=== PATIENT | male | born 1985 | race Caucasian/White ===

== ENCOUNTER 2019-07-06 19:02 | Inpatient (IN) | payer MEDICAID ==
[~2019-07-06] VITALS: Ht 177.8 cm; Wt 112.7 kg
--- NOTE | ~2019-07-06 | HEMODYNAMI ---
PATIENT:KAREN SALAZAR MEDICAL RECORD: [id number] : 81 LOCATION:[facility] D.2118 ADMISSION DATE: 07/07/19 Generatedon:07/08/20198:59 Patient name: KAREN SALAZAR Patient #: [id number] SSN: [id number] : 1985 Date of study: 07/08/2019 Page: Of Hemodynamic Procedure Report Patient Data Patient Demographics Procedure consent was obtained First Name: KAREN Gender: Male Last Name: MARTIN : 1985 Patient #: [id number] Age: 34 year(s) Race: Unknown SSN: [id number] Additional ID: [id number] Contact details [address]: [address] [place] [address] State: [place] City: [place] Zip code: [address] Past Medical History Allergies Allergen Reaction Date Comments Reported Other allergy 07/08/2019 PCN, AMOXICILLIN, BENADRYL Admission Admission Data Admission Date: 07/07/2019 Admission Time: 13:34 Room #: D.2118 Height (in.): 70 BSA: 2.29 (m2) Height (cm.): 177.8 BMI: 35.74 (kg/m2) Weight (lbs.): 249.12 Weight (kg.): 113 Lab Results Lab Result Date: 07/08/2019 Lab Result Time: 0:00 Biochemistry Name Units Result Min Max BUN mg/dl 15 --(--*-)-- 7 18 eGFR ml/min 90 --(*---)-- 90 120 NONAFRICAN CBC Name Units Result Min Max Hematocrit % 44.5 --(*---)-- 42 54 Hemoglobin g/dl 14.9 --(-*--)-- 13.5 17.5 Procedure Procedure Types Cath Procedure Diagnostic Procedure LHC LHC w/Coronaries Procedure Description Procedure Date Procedure Date: 07/08/2019 Procedure Start Time: 8:46 Procedure End Time: 8:57 Procedure Staff Name Function Harrison Gerard MD Performing Physician Jose Caldwell RN Nurse Pramod Cleveland RN Welder Boilermaker Shania Lopez RT Monitor Heike Coughlin RT Scrub Procedure Data Cath Procedure Fluoroscopy Diagnostic fluoroscopy Total fluoroscopy Time: 1.9 time: 1.9 min min Diagnostic fluoroscopy Total fluoroscopy dose: 386 dose: 386 mGy mGy Contrast Material Contrast Material Type Amount (ml) Isovue 300 44 Entry Location Entry Primary Successful Side Size Upsize Upsize Entry Closure Rollins ccessful Closure Location (Fr) 1 (Fr) 2 (Fr) Remarks Device Remarks Radial Right 6 Fr Mechanical artery Short Compression Estimated blood loss: 5 ml Diagnostic catheters Device Type Used For End Catheter Placement DIAGNOSTIC [place] 110cm 5 Procedure Fr catheter ([id number]) Procedure Complications No complications Procedure Medications Medication Administration Route Dosage 0.9% NaCl I.V. 100 ml/hr Oxygen etCO2 Nasal cannula 2 l/min Heparin Flush Bag added to field 2 bags (1000units/500ml NS) Lidocaine 2% added to field 20 Radial Cocktail added to field 1 syringe (Verapamil 2mg/Nitro 400mcg/Heparin 1500units) Versed I.V. 2 mg Fentanyl I.V. 100 mcg Versed I.V. 2 mg Fentanyl I.V. 100 mcg Radial Cocktail I.A. 1 syringe (Verapamil 2mg/Nitro 400mcg/Heparin 1500units) Versed I.V. 1 mg Hemodynamics Rest BSA: 2.29 (m2) HGB: 14.9 (g/dl) O2 Consumption: Estimated: 302.72 (ml/min) O2 Co nsumption indexed: Estimated:132.19 (ml/min/m) Heart Rate: 93 (bpm) Snapshots Pre Cath Intra NCS Post Cath Vital Signs Time Heart Resp SPO2 etCO2 NIBP (mmHg) Rhythm Pain Sedation Rate (ipm) (%) (mmHg) Status Level (bpm) 8:03:40 109 29 94 33 141/85(108) NSR 0 (11) 10(A) , No pain 8:08:00 104 15 92 36.8 126/90(106) NSR 0 (11) 10(A) , No pain 8:12:14 106 13 93 27 133/90(108) NSR 0 (11) 10(A) , No pain 8:16:30 107 16 92 27.8 133/89(105) NSR 0 (11) 10(A) , No pain 8:20:44 101 16 92 32.3 129/85(106) NSR 0 (11) 10(A) , No pain 8:24:58 100 14 92 30.1 129/85(94) NSR 0 (11) 10(A) , No pain 8:29:10 99 13 92 36.8 128/76(100) NSR 0 (11) 10(A) , No pain 8:33:20 101 16 93 35.3 130/86(98) NSR 0 (11) 10(A) , No pain 8:37:32 94 14 93 36.1 129/81(117) NSR 0 (11) 10(A) , No pain 8:41:48 92 19 93 18 124/78(94) NSR 0 (11) 10(A) , No pain 8:46:08 101 13 94 36.8 115/67(102) NSR 0 (11) 10(A) , No pain 8:50:24 103 11 92 33.8 123/71(98) NSR 0 (11) 10(A) , No pain 8:54:34 117 12 91 37.6 115/74(96) NSR 0 (11) 10(A) , No pain Medications Time Medication Route Dose Verified Delivered Reason Notes Effectiveness by by 8:01:35 0.9% NaCl I.V. 100 Jose Jose Per ml/hr Paulette Caldwell physician RN RN 8:01:44 Oxygen etCO2 2 l/min Jose Jose for low 02 Nasal Lorigan Lorigan sats cannula RN RN 8:01:54 Heparin Flush added 2 bags Jose Jose used for Bag to Lorigan Lorigan procedure (1000units/500ml field KULKARNI RN NS) 8:02:05 Lidocaine 2% added 20ml Jose Jose for local to vial Lorigan Lorigan anesthetic field KULKARNI RN 8:02:18 Radial Cocktail added 1 Jose Jose used for (Verapamil to syringe Lorigan Lorigan procedure 2mg/Nitro field KULKARNI RN 400mcg/Heparin 1500units) 8:44:31 Versed I.V. 2 mg Jose Jose for sedation Paulette Caldwell RN RN 8:44:39 Fentanyl I.V. 100 mcg Jose Jose for sedation Paulette Caldwell RN RN 8:48:30 Versed I.V. 2 mg Jose Jose for sedation Paulette Caldwell RN RN 8:48:36 Fentanyl I.V. 100 mcg Jose Jose for sedation Paulette Caldwell RN RN 8:49:03 Radial Cocktail I.A. 1 Jose Harrison for (Verapamil syringe Paulette Gerard MD vasodilation 2mg/Nitro RN 400mcg/Heparin 1500units) 8:50:10 Versed I.V. 1 mg Jose Jose for sedation Paulette Caldwell RN senior sql server developer Log Time Note 7:34:04 Informed consent obtained and on chart 7:37:14 Procedure Status Urgent Heart Cath (IP). 7:37:17 Pramod Cleveland RN sent for patient. Start room use. 7:37:18 Time tracking: Regular hours (M-F 7:00 - 5:00) 7:37:23 Plan of Care:Hemodynamics will remain stable., Cardiac rhythm will remain stable., Comfort level will be maintained., Respiratory function will remain adequate., Patient/ family verbilizes understanding of procedure., Procedure tolerated without complication., Recovers from procedure without complications.. 7:37:28 H&P Date Dictated: 07/08/2019 New H&P dictated by physician.. 7:38:01 Patient allergic to Other allergyPCN, AMOXICILLIN, BENADRYL 7:39:04 Lab Result : BUN 15 mg/dl 7:39:04 Lab Result : eGFR NONAFRICAN 90 ml/min 7:39:04 Lab Result : Hemoglobin 14.9 g/dl 7:39:04 Lab Result : Hematocrit 44.5 % 7:44:34 Risk of Mortality: .1 7:44:36 Risk of blood transfusion: .1 7:44:38 Risk of SONIA: .1 7:52:53 Patient received from Med II to CCL 1 Alert and oriented. Tansferred to table in Supine position. 7:52:54 Warm blankets applied, and rita hugger turned on for patient comfort. 7:52:55 Correct patient and procedure confirmed by team. 7:52:55 ECG and BP/O2 sat monitors applied to patient. 7:52:57 Pre-procedure instructions explained to patient. 7:52:58 Pre-op teaching completed and patient verbalized understanding. 7:53:06 Family in patients room. 7:53:08 Patient NPO since Midnight. 7:53:10 Is patient on blood thinner?Yes 7:53:18 PRELOADED ON PLAVIX 7:53:19 Patient diabetic? Yes. 7:53:21 If diabetic: On Metformin? Yes 7:53:24 If on Metformin: Last Dose? 07/06/2019 7:53:56 Is the patient allergic to Iodine/contrast media? No. 7:54:04 Previous problem with sedation/anesthesia? No ? 7:54:05 Snore? Yes 7:54:06 Sleep apnea? No 7:54:07 Deviated septum? No 7:54:07 Opens mouth fully? Yes 7:54:08 Sticks out tongue? Yes 7:54:10 Airway obstruction? No ? 7:54:12 Dentures? No . 7:54:54 Modified Ottoniel's test Ulnar < 7 seconds 7:54:57 Patient pain scale 0/10 ?. 7:55:18 IV patent on arrival in left wrist with 0.9% NaCl at [facility]. 7:55:21 Lab results completed and on chart. 7:55:28 Right Radial & Right Groin area was prepped with chlora-prep and draped in sterile fashion 7:55:29 Alarms reviewed by R. N. 7:55:30 Sharps counted by scrub and verified by R.N. 8:01:35 0.9% NaCl 100 ml/hr I.V. was administered by Jose Caldwell RN; Per physician; Verbal order read back and verified. 8:01:44 Oxygen 2 l/min etCO2 Nasal cannula was administered by Jose Caldwell RN; for low 02 sats; Verbal order read back and verified. 8:01:54 Heparin Flush Bag (1000units/500ml NS) 2 bags added to field was administered by Jose Caldwell RN; used for procedure; Verbal order read back and verified. 8:02:05 Lidocaine 2% 20ml vial added to field was administered by Jose Caldwell RN; for local anesthetic; Verbal order read back and verified. 8:02:18 Radial Cocktail (Verapamil 2mg/Nitro 400mcg/Heparin 1500units) 1 syringe added to field was administered by Jose Caldwell RN; used for procedure; Verbal order read back and verified. 8:02:25 Vital chart was started 8:04:57 Baseline sample Acquired. 8:05:00 Rhythm: sinus tachycardia 8:05:02 Full Disclosure recording started 8:28:10 Use device set Radial Dx or PCI 8:28:11 ACIST Syringe (16378) opened to sterile field. 8:28:12 Bag Decanter (2001S) opened to sterile field. 8:28:13 ACIST Hand Control (97498) opened to sterile field. 8:28:13 ACIST Manifold (04518) opened to sterile field. 8:28:13 Tegaderm 4 x 4 (1626W) opened to sterile field. 8:28:15 Medline Cath Pack ([id number]) opened to sterile field. 8:28:16 MBrace Wrist Support ([id number]) opened to sterile field. 8:28:19 EMERALD Guide Wire (253-570) opened to sterile field. 8:28:20 SHEATH 6FR RAIN (2545115) opened to sterile field. 8:35:37 Stress Test: no; N/A NSTEMI 8:40:37 Patient Weight : 249.12 lbs 8:40:41 Patient Height : 70 inches 8:41:51 --------ALL STOP TIME OUT------ 8:41:51 Final Timeout: patient, procedure, and site verified with staff and physician. All members of the team are in agreement. 8:41:53 Right Radial & Right Groin site verified by team. 8:41:57 Fire Safety Assessment: A--An alcohol-based skin anteseptic being used preoperatively., C--Open oxygen or nitrous oxide is being used., D--An ESU, laser, or fiber-optic light is being used. 8:42:00 Physical assessment completed. ASA score P 2 - A patient with mild systemic disease as per Harrison Gerard MD. 8:42:02 1) 90+ Normal kidney functon but urine findings or structural abnormalities or genetic trait point to kidney disease. 8:42:05 Maximum allowable contrast dose (3.7 X eGFR X 0.75)250 ml. 8:42:08 Sedation plan: IV Moderate Sedation Medication:Versed, Fentanyl 8:44:31 Versed 2 mg I.V. was administered by Jose Caldwell RN; for sedation; Verbal order read back and verified. 8:44:39 Fentanyl 100 mcg I.V. was administered by Jose Caldwell RN; for sedation; Verbal order read back and verified. 8:46:32 Procedure started. 8:46:55 Local anesthetic to right radial artery with Lidocaine 2% by Harrison Gerard MD.INITIAL ACCESS ONLY 8:47:29 A 6 Fr Short sheath was inserted into the Right Radial artery 8:48:30 Versed 2 mg I.V. was administered by Jose Caldwell RN; for sedation; Verbal order read back and verified. 8:48:36 Fentanyl 100 mcg I.V. was administered by Jose Caldwell RN; for sedation; Verbal order read back and verified. 8:48:50 A DIAGNOSTIC [place] 110cm 5 Fr catheter (019193) was advanced over the wire and used for Procedure. 8:49:03 Radial Cocktail (Verapamil 2mg/Nitro 400mcg/Heparin 1500units) 1 syringe I.A. was administered by Harrison Gerard MD; for vasodilation; Verbal order read back and verified. 8:49:42 LV gram done using MATA 8:49:45 Injector settings: Ml/sec: 5, Volume: 15, 8:50:10 Versed 1 mg I.V. was administered by Jose Caldwell RN; for sedation; Verbal order read back and verified. 8:50:19 EF : 60 % 8:51:18 RCA angiography performed. 8:51:19 Catheter exchanged over wire. 8:51:27 GUIDE 6FR EBU 3.0 catheter ([id number]) opened to sterile field. 8:51:59 6 Fr EBU 3 guide catheter was inserted over the wire 8:52:50 LCA angiography performed. 8:52:56 Guide catheter removed. 8:53:04 Procedure ended.(Physican Out) 8:53:36 ZEPHYR REGULAR TR BAND (646541) opened to sterile field. 8:53:45 Sheath removed intact; hemostasis achieved with Mechanical Compression to the Right Radial artery. 8:53:50 Fluoroscopy time 01.90 minutes. 8:53:55 Fluoroscopy dose: 386 mGy 8:53:55 Flurop Dose total: 386 8:54:01 Dose Area Product 28002 mGy/cm. 8:54:07 Contrast amount:Isovue 300 44ml. 8:54:10 Maximum allowable dose exceeded? No. 8:54:11 Sharps counted by scrub and verified by R.N. 8:54:15 [place] band inflated with 10cc of air. 8:54:17 Insertion/operative site no bleeding no hematoma. 8:54:19 Post-procedure physical assessment completed. ASA score P 2 - A patient with mild systemic disease as per Harrison Gerard MD. 8:54:26 Post procedure rhythm: unchanged. 8:56:41 Estimated blood loss: 5 ml 8:56:43 Post procedure instruction explained to patient.Patient verbalizes understanding. 8:56:43 Patient needs reinforcement of post procedure teaching. 8:57:04 Procedure and supply charges have been captured, reviewed, submitted and are correct. 8:57:10 Procedure Complication : No complications 8:57:12 Vital chart was stopped 8:57:13 [facility] Findings: mild to moderate CAD (<70%) 8:57:18 Operative report dictated upon procedure completion. 8:57:18 See physician's report for complete and final results. 8:57:20 Report given to PCU. 8:57:22 Patient transfered to PCU with Bed. 8:57:23 Procedure ended. 8:57:23 Full Disclosure recording stopped 8:57:29 End room use (Document Last) Device Usage Item Name Manufacture Quantity Catalog Hospital Part Current Minima l Lot# / Number Charge Number Stock Stock Serial# Code ACIST Acist 1 08006 254036 201520 [id number] 20 Syringe Medical (61140) Systems Inc Bag Microtek 1 2001S [id number] 89011 133877 5 Decanter Medical Inc. () ACIST Hand Acist 1 13644 101425 694686 451754 5 Control Medical (23896) Systems Inc ACIST Acist 1 16819 312336 067149 384340 5 Manifold Medical (20994) Systems Inc Tegaderm 4 3M 1 1626W 666218 741270 590708 5 x 4 (1626W) Medline Medline 1 [id number] 364375 80596 862700 5 Cath Pack ([id number]) MBrace Advanced 1 140-0250-00 095385 32270 997493 5 Wrist Vascular Support Dynamics ([id number]) [facility] Cardinal 1 827-667 235614 872515 731120 5 Guide Wire [facility] (404-299) SHEATH 6FR Cardinal 1 [id number] 146030 8456634 167664 5 [facility] (5594899) DIAGNOSTIC Terumo 1 92-4965 050002 429044 401267 5 [place] 110cm 5 Fr catheter (031684) GUIDE 6FR Medtronic 1 [id number] 675861 61121 512821 0 EBU 3.0 catheter ([id number]) ZEPHYR Cardinal 1 102704 619947 1265188 044333 5 REGULAR TR Health BAND (654546) Signature Audit [place] Stage Time Signature Unsigned Intra-Procedure 07/08/2019 Shania Lopez 8:59:12 AM RT(R) Intra-Procedure 07/08/2019 Jose 8:59:31 AM Paulette KULKARNI Intra-Procedure 07/08/2019 Harrison Gerard 8:59:48 AM [place] [id number] [facility] [place] [address]
--- NOTE | ~2019-07-06 | OP ---
PATIENT NAME: KAREN SALAZAR MEDICAL RECORD: [id number] :81 LOCATION:D.M2 D.2118 ADMISSION DATE:07/07/19 SURGEON: FLORENTIN MONTAÑO MD DATE OF OPERATION: 07/08/2019 PROCEDURES: 1. Left heart catheterization. 2. Selective coronary angiography. 3. Left ventriculogram. INDICATION: Non-Q-wave myocardial infarction. PROCEDURE IN DETAIL: After informed consent was obtained and after a detailed explanation of risks, benefits as well as alternative therapies, the patient elected to proceed with angiogram and heart catheterization. The right radial area was prepped and draped in normal sterile fashion. Right radial artery was cannulated via modified Seldinger technique with placement of 5-Swazi sheath. All catheters exchanged through this sheath. FINDINGS: Left ventriculography was performed in standard 30-degree MATA view, reveals good cardiac wall motion throughout all segments. Overall ejection fraction estimated 60%. SELECTIVE CORONARY ANGIOGRAPHY: Left main, left anterior descending, left circumflex, and right coronary artery are all smooth-walled vessels with no angiographic evidence of coronary artery disease. OVERALL IMPRESSION: 1. No angiographic evidence of coronary artery disease. 2. Normal left heart pressures. 3. Normal left ventricular systolic function. Chest pain is not due to a hemodynamically significant ischemic heart disease. Continue medical management of cardiac risk factors. TRANSINT:[id number] Voice Confirmation ID: [id number] DOCUMENT ID: [id number] FLORENTIN MONTAÑO MD CC: [id number] DICTATION DATE: 07/08/19 0855 HORN PLAYER: 07/08/19 1134 ADM IN [place] [address] [place] [address]
--- NOTE | ~2019-07-06 | EC ---
PATIENT:KAREN SALAZAR DATE OF SERVICE: 07/07/19 SEX: M MEDICAL RECORD: [id number] DATE OF : [birth year] LOCATION:D.M2 D.211 AGE OF PATIENT: 34 ADMISSION DATE: 07/07/19 REFERRING PHYSICIAN: INTERPRETING PHYSICIAN: FLORENTIN GERARD MD ECHOCARDIOGRAM REPORT ECHO CHARGES 4 ECHO COMPLETE Date: 07/07/19 CLINICAL DIAGNOSIS: IN ECHOCARDIOGRAPHIC MEASUREMENTS (adult normal given) AC root (d.<3.7cm) 3.2 cm LV Septum d (<1.2 cm> 1.3 cm Valve Excursion 1.2 cm LV Septum (systole) 1.4 cm Left Atria (s.<4.0cm> 4.5 cm LVPW d(<1.2cm) 1.3 cm RV (d.<2.3cm) 3.7 cm LVPW (sytole) 1.6 cm LV diastole(<5.6CM) 7.4 cm MV E-F(>70mm/sec) cm LV systole 6.1 cm LVOT Diameter 1.9 cm MV exc.(>10mm) cm Est.ejection fraction (50-75%) % DOPPLER: LVIT cm/sec A 73 cm/sec E 63 cm/sec LA cm/sec RVSP 15.5 mmHg LVOT 111 cm/sec AOP1/2T m/s Asc. Ao 121 cm/sec RVOT 74 cm/sec RA cm/sec PA 93 cm/sec AV Gradient Peak 5.8 mmHg AV Mean 3.4 mmHg AV Area 2.6 cm MV Gradient Peak 4.7 mmHg MV Mean 2.3 mmHg MV Area cm COMMENTS: Wind Turbine Mechanic: Andrew CHILDERS Lead Technical Writer: Lory Gerard TAPE# PACS Pericardial Effusion N DATE OF SERVICE: 07/08/2019 FINDINGS: 1. Left ventricular chamber size is mildly dilated. Left ventricular systolic function is preserved at 50 to 55%. 2. Left atrium is enlarged at 4.5 cm. Right atrium and right ventricle chamber sizes are as well mildly dilated. 3. Valvular structure has normal structure and motion. 4. Doppler interrogation reveals no significant valvular insufficiency or stenosis and pulmonary systolic pressure is normal estimated 15 mmHg. ECHOCARDIOGRAM REPORT [id number] KAREN SALAZAR 5. No evidence of pericardial effusion or left ventricular thrombus. TRANSINT:[id number] Voice Confirmation ID: [id number] DOCUMENT ID: [id number] FLORENTIN GERARD MD CC: [id number] DICTATION DATE: 07/08/19 1259 FULFILLMENT COORDINATOR: 07/08/191958 DIS IN 07/08/19 [place] [id number] [place] [id number]
--- NOTE | ~2019-07-06 | CN ---
PATIENT NAME:KAREN JUÁREZ MEDICAL RECORD: [id number] : 81 LOCATION:[facility].2118 ADMIT DATE: 07/06/19 ACCOUNT: [id number] CONSULTING PHYSICIAN: FLORENTIN MONTAÑO MD REFERRING PHYSICIAN: DORIS LINDSAY MD DATE OF CONSULTATION: 07/07/2019 CARDIOLOGY CONSULTATION DIAGNOSES: 1. Non-Q-wave myocardial infarction. 2. Coronary artery disease 3. Noninsulin-dependent diabetes. 4. Hypertension. 5. Hyperlipidemia. 6. Family history of coronary artery disease. HISTORY OF PRESENT ILLNESS: Mr. Juárez presents with chest pain, diaphoresis. It came on acutely last night while eating dinner. He had profound shortness of breath, diaphoresis, began having chest pain. He was noted to be hyperglycemic with blood sugar in the 400 range. This is not unusual for him. He has diabetes that is known for a year. He is on Glucophage for the diabetes. He has been having episodes of chest pain. In fact, in November, he underwent cardiac catheterization in [place] due to ongoing chest pain. They told him that he had some degree of coronary artery disease, but not significant needing stenting or intervention at that time. He has continued to have episodes of chest discomfort. He does think the episodes of chest discomfort have overall worsened and become more frequent over the past few months. Since admission, he as well has had an episode of chest discomfort this morning. He does have a positive troponin. His EKG is with no acute ST-T abnormalities. PHYSICAL EXAMINATION: CONSTITUTIONAL/GENERAL APPEARANCE: Well nourished, well developed, appears stated age. EYES: Lids and conjunctivae noninjected. No discharge. No pallor. ENT: Lips within normal limit. No cyanosis. No pallor. NECK: Carotid arteries, bilateral normal upstroke. No bruits. No thrills. No jugular venous pressure or distention. CERVICAL LYMPH NODES: Nontender. Nonenlarged. THYROID: Not enlarged. No nodules. CARDIOVASCULAR: Precordial exam, nondisplaced. No heaves or pericardial thrills. Rate and rhythm, regular. Heart sounds, normal S1, normal S2. No S3, no gallop, no rub. Systolic murmur, not heard. Diastolic murmur, not heard. RESPIRATORY: Respiratory effort, unlabored. Normal curvature. No thoracic deformity. No chest wall tenderness. Percussion, resonant. Auscultation, clear. No wheezes, no rales, no rhonchi. ABDOMEN: Soft, nondistended, nontender. No abdominal pain, no vomiting and normal appetite. MUSCULOSKELETAL: No joint tenderness, normal gait, normal tone. SKIN: Warm and dry. OVERALL IMPRESSION: Non-Q-wave myocardial infarction with a history of coronary artery disease, family history; diabetes; hypertension; hyperlipidemia. At this time, we will proceed with coronary angiography in the a.m. Further care depends upon findings of the angiography. CONSULT REPORT [id number] KAREN JUÁREZ TRANSINT:[id number] Voice Confirmation ID: [id number] DOCUMENT ID: [id number] FLORENTIN MONTAÑO MD CC: [id number] DICTATION DATE: 07/07/19 113 FLOW TRADER: 07/07/19 1306 ADM IN [facility] [address] [id number]
[2019-07-06] MEDS ORDERED: METFORMIN HCL500 M1 PO (19:17)
[2019-07-06] MEDS ORDERED: LISINOPRIL-HCT1 EAC7 PO (19:18)
[2019-07-06] MEDS ORDERED: CELEBREX 100 M100 MG PO (19:18)
[2019-07-06] MEDS ORDERED: GEMFIBROZIL600 MG PO (19:22)
[2019-07-06] MEDS ORDERED: LIPITOR40 MG PO (19:23)
[2019-07-06] MEDS ORDERED: ZANAFLEX4 MG PO (19:23)
[2019-07-06 19:38] LABS: APPEARANCE CLEAR (CLEAR); BILIRUBIN NEGATIVE (NEGATIVE); COLOR STRAW (YELLOW); GLUCOSE 500 mg/dL (NEGATIVE); KETONE NEGATIVE (NEGATIVE); NITRITE NEGATIVE (NEGATIVE); PROTEIN NEGATIVE (NEGATIVE); SPECIFIC GRAVITY 1.015 (1.005-1.020); UROBILINOGEN NORMAL (NORMAL)
--- NOTE | 2019-07-06 19:40 | NUR ---
FSBS 353
[2019-07-06 19:47] LABS: BASOPHILS 0.3 % (0-2); EOSINOPHILS 0.8 % (0-7); HEMATOCRIT 43.5 % (42.0-54.0); HEMOGLOBIN 15.2 g/dL (13.5-17.5); IMMATURE GRANULOCYTES 0.4 % (0-5); LYMPHOCYTES 21.8 % (15-50); MCH 31.1 pg (26.0-34.0); MCHC 34.9 g/dL (31.0-37.0); MEAN PLATELET VOLUME 12.7 fL (7.4-10.4); MONOCYTES 9.5 % (2-11); NEUTROPHILS 67.2 % (40-80); PLATELET COUNT 360 10x3/uL (130-400); RBC 4.89 10x6/uL (4.20-6.10); RDW 12.3 % (11.5-14.5); WBC 10.9 10x3/uL (4.8-10.8)
[2019-07-06 20:36] LABS: CALC OSMOLALITY 279 mosm/kg (275-300); CALCIUM 8.4 mg/dL (8.5-10.1); CARBON DIOXIDE 23.8 mmol/L (21.0-32.0); CHLORIDE - SERUM 99 mmol/L (98-107); CREATININE - SERUM 0.9 mg/dL (0.6-1.3); GLUCOSE 337 mg/dL (74-106); POTASSIUM - SERUM 4.1 mmol/L (3.5-5.1); SODIUM 133 mmol/L (136-145); UREA NITROGEN 14 mg/dL (7-18); eGFR NON AFRICAN AMERICAN > 90 mL/min (90-120)
[2019-07-06 20:56] LABS: ALBUMIN 3.2 g/dL (3.4-5.0); MAGNESIUM - SERUM 1.7 mg/dL (1.8-2.4)
[2019-07-06 20:58] LABS: ALT (SGPT) 82 U/L (10-68)
[2019-07-06 21:00] LABS: CREATINE KINASE 115 UL (21-232); KETONE - SERUM NEGATIVE (NEGATIVE)
[2019-07-06 21:01] LABS: BILIRUBIN - TOTAL 0.08 mg/dL (0.2-1.3)
--- NOTE | 2019-07-06 21:10 | NUR ---
FSBS 283. ADVISED EDP. ORDERS CHANGED FROM 10 UNITS OF REG INSULIN TO 5 UNITS OF REG INSULIN
[2019-07-06 21:14] LABS: CKMB 9.5 U/L (0.0-3.6)
[2019-07-06 21:15] LABS: ALKALINE PHOSPHATASE 86 U/L (46-116); TROPONIN-I 0.091 ng/mL (0.000-0.060)
[2019-07-06 21:25] VITALS: BP 138/85
--- NOTE | 2019-07-06 21:48 | NUR ---
PT REPORTS RELIEF IN CHEST PAIN 1/10 AFTER 1 NITRO.
--- NOTE | 2019-07-06 22:16 | NUR ---
REPORT RECIEVED FROM ER.
--- NOTE | 2019-07-06 22:30 | NUR ---
ADMIT TO ROOM 2117 FROM ER. ALERT/ORIENTED. BROUGHT PER WHEELCHAIR. ADMISSION ASSESSMENT AND HISTORY COMPLETED. HOME MEDS REVIEWED. PT DENYING PAIN OR DISCOMFORT AT THIS TIME. IV MAGNESIUM COMPLETED THAT WAS STARTED IN ER. PIV TO LEFT HAND SALINE LOCKED. TELEMETRY STARTED. ST 108 PER MONITORS. PLAN OF CARE INITIATED. WILL BE NPO AFTER MIDNIGHT UNTIL SEEN BY BREADING MACHINE TENDER IN AM.
[2019-07-06 22:52] LABS: CKMB 0.6 U/L (0.0-3.6); CREATINE KINASE 151 UL (21-232)
[2019-07-06 22:56] LABS: TROPONIN-I < 0.017 ng/mL (0.000-0.060)
[2019-07-06 23:37] VITALS: BP 145/90; BMI 35.6
--- NOTE | 2019-07-07 02:18 | NUR ---
CALL FROM AARON IN ER. NEW ORDERS PER ER MD. ASPIRIN ADMINISTERED. PT RESTING. VOICING NO DISCOMFORT OR CHEST PAIN. SR PER TELEMETRY. CPOC.
[2019-07-07 04:21] LABS: CKMB 0.3 U/L (0.0-3.6); CREATINE KINASE 138 UL (21-232)
[2019-07-07 04:24] LABS: TROPONIN-I < 0.017 ng/mL (0.000-0.060)
[2019-07-07 05:07] LABS: BASOPHILS 0.4 % (0-2); EOSINOPHILS 1.4 % (0-7); HEMATOCRIT 42.7 % (42.0-54.0); HEMOGLOBIN 14.1 g/dL (13.5-17.5); IMMATURE GRANULOCYTES 0.1 % (0-5); LYMPHOCYTES 35.5 % (15-50); MCH 30.1 pg (26.0-34.0); MEAN PLATELET VOLUME 11.8 fL (7.4-10.4); MONOCYTES 9.9 % (2-11); NEUTROPHILS 52.7 % (40-80); RBC 4.68 10x6/uL (4.20-6.10); RDW 12.3 % (11.5-14.5)
[2019-07-07 05:17] LABS: CALCIUM 9.1 mg/dL (8.5-10.1); CHLORIDE - SERUM 98 mmol/L (98-107); CREATININE - SERUM 0.9 mg/dL (0.6-1.3); SODIUM 133 mmol/L (136-145); UREA NITROGEN 13 mg/dL (7-18); eGFR NON AFRICAN AMERICAN > 90 mL/min (90-120)
[2019-07-07 05:23] LABS: MCV 91.2 fL (80.0-100.0); PLATELET COUNT 256 10x3/uL (130-400)
[2019-07-07 05:32] LABS: CALC OSMOLALITY 274 mosm/kg (275-300); GLUCOSE 263 mg/dL (74-106); POTASSIUM - SERUM 4.8 mmol/L (3.5-5.1)
[2019-07-07 10:09] LABS: CKMB 0.5 U/L (0.0-3.6); CREATINE KINASE 130 UL (21-232)
[2019-07-07 10:10] LABS: TROPONIN-I < 0.017 ng/mL (0.000-0.060)
[2019-07-07 10:28] VITALS: BP 126/80
[2019-07-07 11:30] VITALS: Ht 177.8 cm; Wt 112.7 kg
--- NOTE | 2019-07-07 12:00 | NUR ---
CONSENTS SIGNED FOR [facility]. WILL CONT. PLAN OF CARE.
[2019-07-07 14:02] VITALS: BP 123/75
[2019-07-07 17:10] VITALS: BP 116/76
--- NOTE | 2019-07-07 20:21 | NUR ---
REPORT AND INITIAL ROUNDS COMPLETED. PT RESTING IN BED. ALERT/ORIENTED. SR PER TELEMETRY. NONLABORED RESPIRATIONS ON ROOM AIR. SALINE LOCK TO LEFT HADN. PT WILL BE NPO AFTER MIDNIGHT FOR AM HEART CATH PER DR MONTAÑO. CPOC.
[2019-07-07 20:29] VITALS: BP 140/87
--- NOTE | 2019-07-07 21:19 | NUR ---
BEDTIME MEDS GIVEN. FSBS 210. PT WILL BE NPO AT MIDNIGHT, SO NO S/S INSULIN GIVEN. PT C/O THROBBING HEADACHE THAT HE HAS HAD SINCE NITRO WAS REMOVED. MEDICATED WITH NORCO TAB X 1 AND WILL SEE IF THAT IMPROVES HIS HEADACHE. REMINDED NPO AFTER MIDNIGHT. SON AT BEDSIDE. MONITOR AND CPOC. SR PER TELEMETRY.
[2019-07-08 00:30] VITALS: BP 125/82
[2019-07-08 04:03] VITALS: BP 122/75
[2019-07-08 06:03] LABS: BASOPHILS 0.3 % (0-2); EOSINOPHILS 1.8 % (0-7); HEMATOCRIT 44.5 % (42.0-54.0); HEMOGLOBIN 14.9 g/dL (13.5-17.5); IMMATURE GRANULOCYTES 0.2 % (0-5); MCHC 33.5 g/dL (31.0-37.0); MCV 89.7 fL (80.0-100.0); MEAN PLATELET VOLUME 11.8 fL (7.4-10.4); MONOCYTES 9.5 % (2-11); NEUTROPHILS 58.2 % (40-80); PLATELET COUNT 257 10x3/uL (130-400); RBC 4.96 10x6/uL (4.20-6.10); RDW 12.4 % (11.5-14.5); WBC 8.9 10x3/uL (4.8-10.8)
[2019-07-08 06:29] LABS: CALC OSMOLALITY 277 mosm/kg (275-300); CALCIUM 9.1 mg/dL (8.5-10.1); CARBON DIOXIDE 27.7 mmol/L (21.0-32.0); CHLORIDE - SERUM 99 mmol/L (98-107); CHOL - HDL RATIO 4.5 ratio (2.3-4.9); CHOLESTEROL, TOTAL 139 mg/dL (0-200); CREATININE - SERUM 0.9 mg/dL (0.6-1.3); GLUCOSE 186 mg/dL (74-106); HDL CHOLESTEROL 31 mg/dL (32-96); LDL CHOLESTEROL 48 mg/dL (0-100); LDL-HDL RATIO 1.5 ratio (1.5-3.5); POTASSIUM - SERUM 4.5 mmol/L (3.5-5.1); SODIUM 136 mmol/L (136-145); TRIGLYCERIDE 304 mg/dL (30-200); UREA NITROGEN 15 mg/dL (7-18); eGFR NON AFRICAN AMERICAN > 90 mL/min (90-120)
--- NOTE | 2019-07-08 06:46 | NUR ---
NO CHANGE FROM INITIAL SHIFT ASSESSMENT. HAS BEEN NPO SINCE MIDNIGHT FOR HEART CATH THIS AM. AM FSBS 186. CPOC.
--- NOTE | 2019-07-08 07:16 | NUR ---
RECEIVED PT BACK TO ROOM 2117. PT A/O X4. VITALS SIGNS STABLE, PLACED ON FREQUENT VITAL SIGNS. SEPHYR BAND TO RT WRIST, NO S/S OF HEMATOMA OR BLEEDING. PT WANTS SOMETHING TO EAT. WILL ORDER BREAKFAST TRAY. PT DENIES ANY OTHER NEEDS AT THIS TIME, FAMILY AT BEDSIDE, CALL LIGHT IN REACH, NAD NOTED,W ILL CONTINUE TO MONITOR.
--- NOTE | 2019-07-08 07:33 | NUR ---
PRE-OP MEDICATIONS GIVEN AT THIS TIME. PT A/O X4, RESP EVEN AND NONLABORED ON RA. MONITOR SHOWING SR WITH RATE OF 90. PT DENIES ANY NEEDS AT THIS TIME. FAMILY AT BEDSIDE, CALL LIGHT IN REACH, NAD NOTED, WILL CONTINUE TO MONITOR.
--- NOTE | 2019-07-08 07:47 | NUR ---
PT TO RECREATION ATTENDANT SUPERVISOR AT THIS TIME, NAD NOTED.
[2019-07-08 08:17] VITALS: BP 153/99
[2019-07-08] MEDS ORDERED: PROTONIX40 MG PO (11:28)
[2019-07-08] MEDS ORDERED: GLIPIZIDE10 MG PO (11:29)
--- NOTE | 2019-07-08 11:44 | MORECARE ---
CASE MANAGEMENT DISCHARGE SUMMARY PATIENT: KAREN SALAZAR UNIT: [id number] ADM DATE: 07/07/19 AGE: 34 : 81 SEX: M ROOM/BED: D.1998 AUTHOR: KAMRAN,DOC PHYSICIAN: REFERRING PHYSICIAN: DORIS LINDSAY MD DATE OF SERVICE: 07/08/19 Discharge Plan Patient Name: KAREN SALAZAR Facility: [facility]:[place] : 1985 Planned Disposition: Home Anticipated Discharge Date: 07/08/19 Discharge Date: Expected LOS: 1 Initial Reviewer: [email or web address] Initial Review Date: 07/08/2019 Generated: 07/08/19 12:43 pm Comments DCP- Discharge Planning Updated by [email or web address]: Vitor Torres on 07/08/19 10:[address] Patient Name: KAREN SALAZAR Admission Status: ER Accout number: [id number] Admission Date: 07-07-2019 : 1985 Admission Diagnosis: Attending: DORIS LINDSAY Current LOS: 1 Anticipated DC Date: 07-08-2019 Planned Disposition: Home Primary Insurance: [place]ICAID [place] Discharge Planning Comments: CM MET WITH PT IN ROOM TO DISCUSS DISCHARGE PLANNING AND NEEDS. PT REPORTS LIVING AT HOME INDEPENDENTLY WITH SPOUSE AND FAMILY. PT HAS GLUCOMETER WITH NO MEDICAL EQUIPMENT PROVIDER PREFERENCE. PT HAS NO OUTSIDE SERVICES ASSISTING IN THE HOME. CM DISCUSSED AVAILABILITY OF HOME HEALTH, REHAB SERVICES AND MEDICAL EQUIPMENT. PT DENIES DISCHARGE NEEDS, REPORTS HIS FAMILY WILL PICK HIM UP FOR DISCHARGE HOME. VIDEO GAME ENGINEER NURSE NOTIFIED. Senior J2Ee Developer: Vitor Torres DCPIA - Discharge Planning Initial Assessment Updated by [email or web address]: Vitor Torres on 07/08/19 11:39 am * Is the patient Alert and Oriented? Yes * How many steps to enter\exit or inside your home? RAMP * [facility] * Pharmacy [facility] [address] * Preadmission Environment Home with Family * ADLs Independent * Equipment Glucometer * Other Equipment NO MEDICAL EQUIPMENT PROVIDER PREFERENCE * List name and contact numbers for known caregivers / representatives who currently or will assist patient after discharge: KATY SALAZAR, SPOUSE, * Verbal permission to speak to the caregivers and representatives has been obtained from the patient. Yes * Community resources currently utilized None * Please name any agencies selected above. NONE * Additional services required to return to the preadmission environment? No * Can the patient safely return to the preadmission environment? Yes * Has this patient been hospitalized within the prior 30 days at any hospital? No Patient Name: KAREN SALAZAR Page 65510 at 1144 All edits/amendments must be made on the electronic document DICTATION DATE: 07/08/19 114 GEOPHYSICAL OBSERVER: DORA 07/08/19 1143 RPT#: [id number] DC DATE: STATUS: ADM IN [facility] [address] [place] [address] END OF REPORT
[2019-07-08 12:00] VITALS: BP 133/75
--- NOTE | 2019-07-08 12:41 | NUR ---
PROVIDED VERBAL AND WRITTEN DISCHARGE TEACHING TO PT, WHO VERBALIZED UNDERSTANDING REGARDING TEACHING. ZEPHYR BAND REMOVED AND APPLIED BAND AID TO SITE, NO S/S OF BLEEDING OR HEMATOMA. REMOVED HEART MONITOR AND TAKEN TO PUBLIC RELATIONS CONSULTANT, PT LEFT UNIT VIA WHEELCHAIR, WITH ALL BELONGINGS, ACCOMPANIED BY FAMILY, NAD NOTED.
== END 2019-07-08 12:42 | disposition home or self-care (01) | DRG 281 ==
LOC: D.ER 19:02 → OBSVTIME 21:26 → D.M2 21:26
PROVIDERS: Emergency Medicine; Internal Medicine Interventional Cardiology; ADMIT Internal Medicine Nephrology; ATTEND Internal Medicine Nephrology
PROC: B2151ZZ Fluoroscopy of Left Heart using Low Osmolar Contrast (ICD-10-PCS; 2019-07-08)
PROC: 4A023N7 Measurement of Cardiac Sampling and Pressure, Left Heart, Percutaneous Approach (ICD-10-PCS; 2019-07-08)
PROC: B2111ZZ Fluoroscopy of Multiple Coronary Arteries using Low Osmolar Contrast (ICD-10-PCS; principal; 2019-07-08 08:42)
DX: I21.4 Non-ST elevation (NSTEMI) myocardial infarction (principal); E87.1 Hypo-osmolality and hyponatremia; I16.0 Hypertensive urgency; E83.42 Hypomagnesemia; I20.0 Unstable angina; E11.65 Type 2 diabetes mellitus with hyperglycemia

== ENCOUNTER 2019-07-10 17:42 | Emergency (ER) | payer MEDICAID ==
[~2019-07-10] VITALS: Ht 177.8 cm; Wt 110.5 kg
[~2019-07-10 17:42] MED LIST: CELEBREX 100 M100 MG PO; GEMFIBROZIL600 MG PO; GLIPIZIDE10 MG PO; LIPITOR40 MG PO; LISINOPRIL-HCT1 EAC7 PO; METFORMIN HCL500 M1 PO; PROTONIX40 MG PO; ZANAFLEX4 MG PO
[2019-07-10 17:48] VITALS: Ht 177.8 cm; Wt 110.5 kg
[2019-07-10 18:17] LABS: BASOPHILS 0.2 % (0-2); EOSINOPHILS 0.7 % (0-7); HEMATOCRIT 43.8 % (42.0-54.0); HEMOGLOBIN 15.1 g/dL (13.5-17.5); IMMATURE GRANULOCYTES 0.3 % (0-5); LYMPHOCYTES 20.5 % (15-50); MCH 30.6 pg (26.0-34.0); MCHC 34.5 g/dL (31.0-37.0); MCV 88.7 fL (80.0-100.0); MEAN PLATELET VOLUME 11.4 fL (7.4-10.4); MONOCYTES 7.3 % (2-11); PLATELET COUNT 297 10x3/uL (130-400); RBC 4.94 10x6/uL (4.20-6.10); RDW 12.1 % (11.5-14.5)
[2019-07-10 18:25] LABS: APTT 28.4 SECONDS (22.8-39.4); INR 1.02 (0.85-1.17); PROTIME 12.9 SECONDS (11.6-15.0)
[2019-07-10 18:27] LABS: CALC OSMOLALITY 284 mosm/kg (275-300); CALCIUM 8.6 mg/dL (8.5-10.1); CARBON DIOXIDE 21.9 mmol/L (21.0-32.0); CHLORIDE - SERUM 99 mmol/L (98-107); CREATININE - SERUM 0.9 mg/dL (0.6-1.3); POTASSIUM - SERUM 4.2 mmol/L (3.5-5.1); SODIUM 136 mmol/L (136-145); UREA NITROGEN 18 mg/dL (7-18); eGFR NON AFRICAN AMERICAN > 90 mL/min (90-120)
[2019-07-10 18:30] LABS: GLUCOSE 304 mg/dL (74-106)
[2019-07-10 18:43] LABS: ALBUMIN 3.9 g/dL (3.4-5.0); ALKALINE PHOSPHATASE 101 U/L (46-116); ALT (SGPT) 151 U/L (10-68); BILIRUBIN - TOTAL 0.23 mg/dL (0.2-1.3); CKMB 0.7 U/L (0.0-3.6); CREATINE KINASE 132 UL (21-232); TROPONIN-I < 0.017 ng/mL (0.000-0.060)
[2019-07-10 18:46] LABS: PROTEIN - SERUM 7.5 g/dL (6.4-8.2)
[2019-07-10 21:54] VITALS: BP 130/90
== END 2019-07-10 21:50 | disposition home or self-care (01) ==
LOC: D.ER 17:42
PROVIDERS: Family Medicine
DX: E11.65 Type 2 diabetes mellitus with hyperglycemia (principal); R07.9 Chest pain, unspecified; E86.0 Dehydration; Z79.84 Long term (current) use of oral hypoglycemic drugs; I10 Essential (primary) hypertension; I25.2 Old myocardial infarction

== ENCOUNTER 2019-11-04 17:58 | Emergency (ER) | payer MEDICAID ==
[~2019-11-04] VITALS: Ht 177.8 cm; Wt 106.8 kg
[2019-11-04 18:14] VITALS: Ht 177.8 cm; Wt 106.8 kg
[2019-11-04] MEDS ORDERED: TRAZODONE HCL150 MG PO (18:19)
[2019-11-04] MEDS ORDERED: BUPROPION HCL75 MG PO (18:20)
[2019-11-04] MEDS ORDERED: CLEOCIN HCL300 MG PO (19:13)
[2019-11-04 19:21] VITALS: BP 146/80
== END 2019-11-04 19:22 | disposition home or self-care (01) ==
LOC: D.ER 17:58
DX: S61.217A Laceration without foreign body of left little finger without damage to nail, initial encounter (principal); E11.9 Type 2 diabetes mellitus without complications; I25.2 Old myocardial infarction; I10 Essential (primary) hypertension; Z79.84 Long term (current) use of oral hypoglycemic drugs; W26.0XXA Contact with knife, initial encounter; Y93.9 Activity, unspecified; Y92.9 Unspecified place or not applicable

== ENCOUNTER 2020-01-30 17:25 | Observation (INO) | payer MEDICAID ==
[~2020-01-30] VITALS: Ht 177.8 cm; Wt 106.4 kg
[~2020-01-30 17:25] MED LIST changes: +BUPROPION HCL75 MG PO; +CLEOCIN HCL300 MG PO; +TRAZODONE HCL150 MG PO
[2020-01-30 18:11] LABS: HEMATOCRIT 45.2 % (42.0-54.0); HEMOGLOBIN 15.2 g/dL (13.5-17.5); LYMPHOCYTES 18.9 % (15-50); MCH 29.5 pg (26.0-34.0); MCHC 33.6 g/dL (31.0-37.0); MCV 87.6 fL (80.0-100.0); MEAN PLATELET VOLUME 10.2 fL (7.4-10.4); NEUTROPHILS 73.3 % (40-80); RBC 5.16 10x6/uL (4.20-6.10); RDW 12.8 % (11.5-14.5); WBC 13.7 10x3/uL (4.8-10.8)
[2020-01-30 18:12] LABS: PLATELET COUNT 358 10x3/uL (130-400)
[2020-01-30 18:20] VITALS: BP 140/101
[2020-01-30 18:21] LABS: CALC OSMOLALITY 267 mosm/kg (275-300); CALCIUM 9.3 mg/dL (8.5-10.1); CHLORIDE - SERUM 99 mmol/L (98-107); CREATININE - SERUM 0.8 mg/dL (0.6-1.3); POTASSIUM - SERUM 3.8 mmol/L (3.5-5.1); SODIUM 133 mmol/L (136-145); UREA NITROGEN 15 mg/dL (7-18); eGFR NON AFRICAN AMERICAN > 90 mL/min (90-120)
[2020-01-30 18:23] LABS: GLUCOSE 115 mg/dL (74-106)
[2020-01-30 18:30] LABS: APTT 30.3 SECONDS (22.8-39.4); INR 0.93 (0.85-1.17); PROTIME 12.4 SECONDS (11.6-15.0)
[2020-01-30 18:39] LABS: ALBUMIN 4.2 g/dL (3.4-5.0); ALKALINE PHOSPHATASE 71 U/L (30-120); ALT (SGPT) 134 U/L (10-68); BILIRUBIN - TOTAL 0.44 mg/dL (0.2-1.3); CKMB 1.6 U/L (0.0-3.6); CREATINE KINASE 192 UL (21-232); MAGNESIUM - SERUM 2.2 mg/dL (1.8-2.4); PROTEIN - SERUM 8.1 g/dL (6.4-8.2); TROPONIN-I < 0.017 ng/mL (0.000-0.060)
[2020-01-30 19:10] VITALS: BP 140/101
[2020-01-30 22:39] VITALS: BP 128/86; BMI 34.2
[2020-01-30 23:31] LABS: CKMB 1.2 U/L (0.0-3.6); CREATINE KINASE 167 UL (21-232); TROPONIN-I < 0.017 ng/mL (0.000-0.060)
[2020-01-31 04:00] VITALS: BP 106/71
[2020-01-31 06:12] LABS: CKMB 0.9 U/L (0.0-3.6); CREATINE KINASE 144 UL (21-232); TROPONIN-I < 0.017 ng/mL (0.000-0.060)
[2020-01-31 11:17] VITALS: BP 109/62
[2020-01-31 11:19] VITALS: Ht 177.8 cm; Wt 106.4 kg
--- NOTE | 2020-01-31 19:40 | NUR ---
RECIEVED LAYING IN BED WITH HOB ELEVATED. ALERT AND ORIENTED X4. UP AD KIRSTEN TO B/R. TELEMETRY IN PLACE. DENIES ANY NEEDS AT THIS TIME.
[2020-01-31 20:04] VITALS: BP 131/83
[2020-02-01 02:41] VITALS: BP 136/85
[2020-02-01 05:57] VITALS: BP 122/81
[2020-02-01 06:57] LABS: ALBUMIN 3.6 g/dL (3.4-5.0); ALKALINE PHOSPHATASE 66 U/L (30-120); ALT (SGPT) 123 U/L (10-68); BILIRUBIN - TOTAL 0.38 mg/dL (0.2-1.3); CALC OSMOLALITY 276 mosm/kg (275-300); CALCIUM 8.9 mg/dL (8.5-10.1); CARBON DIOXIDE 23.9 mmol/L (21.0-32.0); CHLORIDE - SERUM 102 mmol/L (98-107); CREATININE - SERUM 0.8 mg/dL (0.6-1.3); GLUCOSE 147 mg/dL (74-106); MAGNESIUM - SERUM 2.3 mg/dL (1.8-2.4); POTASSIUM - SERUM 3.6 mmol/L (3.5-5.1); PROTEIN - SERUM 7.2 g/dL (6.4-8.2); SODIUM 137 mmol/L (136-145); UREA NITROGEN 12 mg/dL (7-18); eGFR NON AFRICAN AMERICAN > 90 mL/min (90-120)
--- NOTE | 2020-02-01 07:00 | NUR ---
RECEIVED REPORT. ASSUMED CARE OF PATIENT. RESTING WELL WITH EYES CLOSED RESP EVEN AND UNLABORED. NO DISTRESS. BEDSIDE SHIFT REPORT COMPLETE. WHITE BOARD UPDATED. SR ON TELEMETRY, RATE 83.
[2020-02-01 07:09] LABS: BASOPHILS 0.5 % (0-2); EOSINOPHILS 1.3 % (0-7); HEMATOCRIT 44.5 % (42.0-54.0); HEMOGLOBIN 14.9 g/dL (13.5-17.5); IMMATURE GRANULOCYTES 0.3 % (0-5); LYMPHOCYTES 31.4 % (15-50); MCH 30.4 pg (26.0-34.0); MCHC 33.5 g/dL (31.0-37.0); MCV 90.8 fL (80.0-100.0); MEAN PLATELET VOLUME 10.7 fL (7.4-10.4); NEUTROPHILS 55.5 % (40-80); PLATELET COUNT 292 10x3/uL (130-400); RDW 13.4 % (11.5-14.5); WBC 9.7 10x3/uL (4.8-10.8)
[2020-02-01 08:00] VITALS: BP 125/81
--- NOTE | 2020-02-01 09:00 | NUR ---
PATIENT REMAINS NPO FOR ULTRASOUND OF ABD.
[2020-02-01 11:00] VITALS: BP 123/71
--- NOTE | 2020-02-01 13:50 | NUR ---
20 GAUGE IV REMOVED FROM RIGHT FOREARM. CATHETER TIP INTACT. NO BLEEDING FROM SITE. 2X2 GAUZE APPLIED AND SECURED WITH BANDAID. TOLERATED IV REMOVAL WELL.
--- NOTE | 2020-02-01 13:52 | NUR ---
TELEMETRY REMOVED AND RETURNED TO PROFILING MACHINE SETUP OPERATOR.
--- NOTE | 2020-02-01 14:11 | NUR ---
PATIENT LEFT UNIT VIA WHEELCHAIR AT THIS TIME. PATIENT DISCHARGED TO HOME. PATIENT LEFT UNIT IN STABLE CONDITION WITH ALL PERSONAL BELONGINGS. NO DISTRESS UPON LEAVING UNIT.
== END 2020-02-01 14:15 | disposition home or self-care (01) ==
LOC: D.ER 17:25 → OBSVTIME 20:00 → D.M2 20:00
PROVIDERS: Emergency Medicine; Family Medicine; ADMIT Family Medicine; ATTEND Family Medicine
DX: I20.0 Unstable angina (principal); E87.1 Hypo-osmolality and hyponatremia; E11.65 Type 2 diabetes mellitus with hyperglycemia; I10 Essential (primary) hypertension; E78.5 Hyperlipidemia, unspecified; K21.9 Gastro-esophageal reflux disease without esophagitis; K52.9 Noninfective gastroenteritis and colitis, unspecified; F32.9 Major depressive disorder, single episode, unspecified; F12.90 Cannabis use, unspecified, uncomplicated; R79.89 Other specified abnormal findings of blood chemistry

== ENCOUNTER 2020-02-15 22:33 | Inpatient (IN) | payer MEDICAID ==
[~2020-02-15] VITALS: Ht 177.8 cm; Wt 109.1 kg
--- NOTE | 2020-02-15 22:45 | NUR ---
B/P INCREASED TO 71/40 AFTER PT PLACED TRENDELLENBERG.
[2020-02-15] MEDS ORDERED: ZANAFLEX4 MG PO (22:51)
[2020-02-15] MEDS ORDERED: TRAZODONE HCL150 MG PO (22:51)
[2020-02-15] MEDS ORDERED: BUPROPION XL300 MG PO (22:52)
[2020-02-15 22:58] LABS: BASOPHILS 0.1 % (0-2); EOSINOPHILS 0.5 % (0-7); HEMATOCRIT 34.8 % (42.0-54.0); HEMOGLOBIN 11.5 g/dL (13.5-17.5); IMMATURE GRANULOCYTES 0.5 % (0-5); LYMPHOCYTES 13.1 % (15-50); MCH 30.3 pg (26.0-34.0); MCV 91.6 fL (80.0-100.0); MEAN PLATELET VOLUME 10.7 fL (7.4-10.4); MONOCYTES 11.6 % (2-11); NEUTROPHILS 74.2 % (40-80); PLATELET COUNT 290 10x3/uL (130-400); RDW 12.7 % (11.5-14.5); WBC 17.5 10x3/uL (4.8-10.8)
[2020-02-15 23:08] LABS: CALC OSMOLALITY 276 mosm/kg (275-300); CALCIUM 8.3 mg/dL (8.5-10.1); CARBON DIOXIDE 27.3 mmol/L (21.0-32.0); CHLORIDE - SERUM 99 mmol/L (98-107); CREATININE - SERUM 1.5 mg/dL (0.6-1.3); SODIUM 133 mmol/L (136-145); UREA NITROGEN 24 mg/dL (7-18); eGFR NON AFRICAN AMERICAN 56 mL/min (90-120)
[2020-02-15 23:09] LABS: GLUCOSE 216 mg/dL (74-106)
[2020-02-15 23:12] LABS: ALT (SGPT) 64 U/L (10-68)
[2020-02-15 23:37] LABS: ALKALINE PHOSPHATASE 55 U/L (30-120); BILIRUBIN - TOTAL 0.28 mg/dL (0.2-1.3); CKMB 6.4 U/L (0.0-3.6); TROPONIN-I < 0.017 ng/mL (0.000-0.060)
[2020-02-15 23:40] LABS: CREATINE KINASE 2370 UL (21-232)
[2020-02-16 00:29] LABS: BILIRUBIN NEGATIVE (NEGATIVE); GLUCOSE NEGATIVE (NEGATIVE); KETONE NEGATIVE (NEGATIVE); NITRITE NEGATIVE (NEGATIVE); UROBILINOGEN NORMAL (NORMAL)
[2020-02-16 00:37] LABS: UDS - AMPHET NEGATIVE QUAL (NEGATIVE); UDS - BARB NEGATIVE QUAL (NEGATIVE); UDS - BENZO POSITIVE QUAL (NEGATIVE); UDS - COCAINE NEGATIVE QUAL (NEGATIVE); UDS - OPIATE POSITIVE QUAL (NEGATIVE); UDS - PCP NEGATIVE QUAL (NEGATIVE); UDS - THC POSITIVE QUAL (NEGATIVE)
[2020-02-16 00:44] VITALS: BP 96/50
[2020-02-16] MEDS ORDERED: GLUCOTROL XL 1010 MG PO (00:59)
--- NOTE | 2020-02-16 01:40 | NUR ---
RECEIVED TO ROOM. AROUSES EASILY TO VERBAL STIMULI.rESP EVEN AND UNLABORERD. NO DISTRESS NOTED. DRESSING TO LUNMBAR AREA WITHOUT DRAINAGE. SL TO RIGHT AND LEFT HAND INTACT WITHOUT REDNESS OR EDEMA NOTED. ORIENTED TO ROOM CL IN REACH
[2020-02-16 01:52] VITALS: BP 96/43; Ht 177.8 cm; Wt 109.1 kg
[2020-02-16 04:59] LABS: BASOPHILS 0.1 % (0-2); EOSINOPHILS 0.4 % (0-7); HEMATOCRIT 34.3 % (42.0-54.0); IMMATURE GRANULOCYTES 0.3 % (0-5); LYMPHOCYTES 17.1 % (15-50); MCH 29.4 pg (26.0-34.0); MCHC 32.1 g/dL (31.0-37.0); MCV 91.7 fL (80.0-100.0); MEAN PLATELET VOLUME 10.5 fL (7.4-10.4); MONOCYTES 11.3 % (2-11); NEUTROPHILS 70.8 % (40-80); PLATELET COUNT 240 10x3/uL (130-400); RBC 3.74 10x6/uL (4.20-6.10); RDW 12.9 % (11.5-14.5); WBC 15.3 10x3/uL (4.8-10.8)
[2020-02-16 05:25] LABS: CALCIUM 7.7 mg/dL (8.5-10.1); CARBON DIOXIDE 25.2 mmol/L (21.0-32.0); CHLORIDE - SERUM 106 mmol/L (98-107); CKMB 4.9 U/L (0.0-3.6); MAGNESIUM - SERUM 1.8 mg/dL (1.8-2.4); PHOSPHOROUS 2.7 mg/dL (2.5-4.9); POTASSIUM - SERUM 3.4 mmol/L (3.5-5.1); SODIUM 139 mmol/L (136-145); TROPONIN-I 0.027 ng/mL (0.000-0.060); UREA NITROGEN 19 mg/dL (7-18)
[2020-02-16 05:33] LABS: CALC OSMOLALITY 282 mosm/kg (275-300); CREATINE KINASE 2282 UL (21-232); CREATININE - SERUM 0.9 mg/dL (0.6-1.3); GLUCOSE 157 mg/dL (74-106); eGFR NON AFRICAN AMERICAN > 90 mL/min (90-120)
[2020-02-16 09:07] VITALS: BP 124/70
[2020-02-16 13:48] VITALS: BP 137/86
[2020-02-16 17:03] VITALS: BP 115/71
[2020-02-16 20:00] VITALS: BP 110/58
[2020-02-17] VITALS: BP 118/60
--- NOTE | 2020-02-17 02:10 | NUR ---
I have reviewed this patient and I concur with the Shift Assessment completed by the Licensed Practical Nurse today this shift.
[2020-02-17 06:12] LABS: BASOPHILS 0.2 % (0-2); HEMATOCRIT 36.8 % (42.0-54.0); HEMOGLOBIN 11.9 g/dL (13.5-17.5); IMMATURE GRANULOCYTES 0.3 % (0-5); LYMPHOCYTES 18.9 % (15-50); MCH 29.5 pg (26.0-34.0); MCHC 32.3 g/dL (31.0-37.0); MCV 91.3 fL (80.0-100.0); MEAN PLATELET VOLUME 10.5 fL (7.4-10.4); MONOCYTES 10.3 % (2-11); NEUTROPHILS 67.3 % (40-80); PLATELET COUNT 249 10x3/uL (130-400); RBC 4.03 10x6/uL (4.20-6.10); RDW 12.6 % (11.5-14.5); WBC 13.2 10x3/uL (4.8-10.8)
[2020-02-17 06:41] LABS: CALC OSMOLALITY 270 mosm/kg (275-300); CALCIUM 8.3 mg/dL (8.5-10.1); CARBON DIOXIDE 28.1 mmol/L (21.0-32.0); CHLORIDE - SERUM 102 mmol/L (98-107); CREATININE - SERUM 0.8 mg/dL (0.6-1.3); GLUCOSE 138 mg/dL (74-106); MAGNESIUM - SERUM 1.9 mg/dL (1.8-2.4); PHOSPHOROUS 3.2 mg/dL (2.5-4.9); POTASSIUM - SERUM 3.6 mmol/L (3.5-5.1); SODIUM 135 mmol/L (136-145); eGFR NON AFRICAN AMERICAN > 90 mL/min (90-120)
[2020-02-17 06:42] LABS: UREA NITROGEN 9 mg/dL (7-18)
--- NOTE | 2020-02-17 07:33 | NUR ---
AWAKE AND ALERT. C/O INTENSE BACK PAIN LEVEL 9. REQUESTED AND GIVNE 100MG TRAMADOL PO FOR SAME. WILL MONITOR. LUNGS ARE CLEAR BIALTERALLY, NO COUGH NOTED. SKIN IS INTACT WITHOUT REDNESS. SL TO RIGHT HAND AND IV TO LEFT FOREARM ARE PATENT WITHOUT REDNESS AT INSERTION SITE. DENIES NEEDS. AT BEDSIDE. REPOSITIONED IN BED FOR COMFORT.
[2020-02-17 08:41] VITALS: BP 128/86
[2020-02-17] MEDS ORDERED: PREDNISONE10 MG PO (11:55)
[2020-02-17] MEDS ORDERED: ZANAFLEX4 MG PO (11:55)
[2020-02-17 12:27] VITALS: BP 143/91
--- NOTE | 2020-02-17 13:42 | MORECARE ---
CASE MANAGEMENT DISCHARGE SUMMARY PATIENT: KAREN SALAZAR UNIT: [id number] ADM DATE: 02/16/20 AGE: 34 : 83 SEX: M ROOM/BED: D.2207 AUTHOR: LATANYA ANDREW PHYSICIAN: REFERRING PHYSICIAN: MARISELA POMPA MD DATE OF SERVICE: 02/17/20 Discharge Plan Patient Name: KAREN SALAZAR Facility: [facility]:[place] : 1985 Planned Disposition: Home Anticipated Discharge Date: Discharge Date: Expected LOS: Initial Reviewer: [email or web address] Initial Review Date: 02/16/2020 Generated: 02/17/20 2:41 pm Patient Name: KAREN SALAZAR Page 95081 at 1342 All edits/amendments must be made on the electronic document DICTATION DATE: 02/17/20 1342 INKING MACHINE TENDER: DORA 02/17/20 1342 RPT#: [id number] DC DATE: STATUS: ADM IN [facility] [address] [place] [address] END OF REPORT
--- NOTE | 2020-02-17 13:49 | MORECARE ---
CASE MANAGEMENT DISCHARGE SUMMARY PATIENT: KAREN SALAZAR UNIT: [id number] ADM DATE: 02/16/20 AGE: 34 : 81 SEX: M ROOM/BED: D.2207 AUTHOR: LATANYA ANDREW PHYSICIAN: REFERRING PHYSICIAN: MARISELA POMPA MD DATE OF SERVICE: 02/17/20 Discharge Plan Patient Name: KAREN SALAZAR Facility: [facility]:[place] : 1985 Planned Disposition: Home Anticipated Discharge Date: Discharge Date: Expected LOS: Initial Reviewer: [email or web address] Initial Review Date: 02/16/2020 Generated: 02/17/20 2:49 pm Comments DCP- Discharge Planning Updated by [email or web address]: Kassie Roblero on 02/17/20 12:[address] Patient is discharging home today and I went to see if they needed anything from a CM standpoint. Patient would like to have HH, but stated he was a workman's comp case. He gave me his case management specialist number Rosa gloria [phone] I called her and sent her an email her email address is [email or web address] Last DP export: 02/17/20 12:42 pm Patient Name: KAREN SALAZAR Page 56597 at 1349 All edits/amendments must be made on the electronic document DICTATION DATE: 02/17/20 1349 TAR LEVELER: DORA 02/17/20 1349 RPT#: [id number] DC DATE: STATUS: ADM IN [facility] [address] [place] [address] END OF REPORT
--- NOTE | 2020-02-17 15:53 | MORECARE ---
CASE MANAGEMENT DISCHARGE SUMMARY PATIENT: KAREN SALAZAR UNIT: [id number] ADM DATE: 02/16/20 AGE: 34 : 81 SEX: M ROOM/BED: D.2207 AUTHOR: LATANYA ANDREW PHYSICIAN: REFERRING PHYSICIAN: MARISELA POMPA MD DATE OF SERVICE: 02/17/20 Discharge Plan Patient Name: KAREN SALAZAR Facility: [facility]:[place] : 1985 Planned Disposition: Home Anticipated Discharge Date: Discharge Date: Expected LOS: Initial Reviewer: [email or web address] Initial Review Date: 02/16/2020 Generated: 02/17/20 4:53 pm Comments DCP- Discharge Planning Updated by [email or web address]: Kassie Roblero on 02/17/20 2:[address] I AM STILL WAITING TO HEAR FROM WORKMANS COMP PERSON, I HAVE EXPLAINED TO THE PATIENT AND THAT EVERYTHING WILL NEED TO GO THROUGH HER. I GAVE THEM MY CARD AND WILL LET THEM KNOW WHAT SHE SAYS WHEN I HEAR FROM THEM. THEY ARE OK WITH THAT DCP- Discharge Planning Updated by [email or web address]: Kassie Roblero on 02/17/20 12:[address] Patient is discharging home today and I went to see if they needed anything from a CM standpoint. Patient would like to have HH, but stated he was a workman's comp case. He gave me his welfare case worker number Rosa castro [phone] I called her and sent her an email her email address is [email or web address] Last DP export: 02/17/20 12:49 pm Patient Name: KAREN SALAZAR Page [id number] at 1553 All edits/amendments must be made on the electronic document DICTATION DATE: 02/17/201552 CITY JAILER: DORA 02/17/20 155 RPT#: [id number] DC DATE: STATUS: ADM IN [facility] [address] [place] [address] END OF REPORT
--- NOTE | 2020-02-17 16:25 | NUR ---
DISCHARGE INSTRUCTIONS GIVEN TO PATIENT AND , QUESTIONS ANSWERED, IV'S REMOVED TIPS INTACT, HOME MEDICATIONS GIVEN TO PT FROM PHARMACY, DC PER WC WITH BELONGINGS
--- NOTE | 2020-02-18 09:00 | MORECARE ---
CASE MANAGEMENT DISCHARGE SUMMARY PATIENT: KAREN SALAZAR UNIT: [id number] ADM DATE: 02/16/20 AGE: 34 : 81 SEX: M ROOM/BED: D.2207 AUTHOR: LATANYA ANDREW PHYSICIAN: REFERRING PHYSICIAN: MARISELA POMPA MD DATE OF SERVICE: 02/18/20 Discharge Plan Patient Name: KAREN SALAZAR Facility: [facility]:[place] : 1985 Planned Disposition: Home Anticipated Discharge Date: Discharge Date: 02/17/2020 Expected LOS: 0 Initial Reviewer: [email or web address] Initial Review Date: 02/16/2020 Generated: 02/18/20 9:59 am Comments DCP- Discharge Planning Updated by [email or web address]: Kassie Roblero on 02/17/20 2:[address] I AM STILL WAITING TO HEAR FROM WORKMANS COMP PERSON, I HAVE EXPLAINED TO THE PATIENT AND THAT EVERYTHING WILL NEED TO GO THROUGH HER. I GAVE THEM MY CARD AND WILL LET THEM KNOW WHAT SHE SAYS WHEN I HEAR FROM THEM. THEY ARE OK WITH THAT DCP- Discharge Planning Updated by [email or web address]: Kassie Roblero on 02/17/20 12:[address] Patient is discharging home today and I went to see if they needed anything from a CM standpoint. Patient would like to have HH, but stated he was a workman's comp case. He gave me his complex case manager number Rosa castro [phone] I called her and sent her an email her email address is [email or web address] Last DP export: 02/17/20 2:53 pm Patient Name: KAREN SALAZAR Page 10187 at 0900 All edits/amendments must be made on the electronic document DICTATION DATE: 02/18/20 09 CERTIFIED PATHOLOGY ASSISTANT: DORA 02/18/20 09 RPT#: [id number] DC DATE:02/17/20 STATUS: DIS IN [facility] [address] [place] [address] END OF REPORT
--- NOTE | 2020-02-18 14:47 | MORECARE ---
CASE MANAGEMENT DISCHARGE SUMMARY PATIENT: KAREN SALAZAR UNIT: [id number] ADM DATE: 02/16/20 AGE: 34 : 81 SEX: M ROOM/BED: D.2207 AUTHOR: KAMRAN,DOC PHYSICIAN: REFERRING PHYSICIAN: MARISELA POMPA MD DATE OF SERVICE: 02/18/20 Discharge Plan Patient Name: KAREN SALAZAR Facility: [facility]:[place] : 1985 Planned Disposition: Home Anticipated Discharge Date: Discharge Date: 02/17/2020 Expected LOS: 0 Initial Reviewer: [email or web address] Initial Review Date: 02/16/2020 Generated: 02/18/20 3:47 pm Comments DCP- Discharge Planning Updated by [email or web address]: Kassie Roblero on 02/18/20 1:[address] I FINALLY HEARD FROM AWAIS ABOUT HH, SHE SENT ME THE BELOW INFORMATION We use [facility] phone # [phone] Email [email or web address] Claim # [id number] - KAREN SALAZAR - 05/15/2019 - DOL I CALLED AND SPOKE WITH YAIMA, FAXED CLINCIALS TO HER AT [phone] REF # [id number] THEY WILL CALL AND SET EVERYTHING UP AFTER IT IS APPROVED I CALLED THE PATIENT AND DID NOT GET AN ANSWER AND A VOICEMAIL WAS NOT AN OPTION DCP- Discharge Planning Updated by [email or web address]: Kassie Roblero on 02/17/20 2:[address] I AM STILL WAITING TO HEAR FROM WORKMANS COMP PERSON, I HAVE EXPLAINED TO THE PATIENT AND THAT EVERYTHING WILL NEED TO GO THROUGH HER. I GAVE THEM MY CARD AND WILL LET THEM KNOW WHAT SHE SAYS WHEN I HEAR FROM THEM. THEY ARE OK WITH THAT DCP- Discharge Planning Updated by [email or web address]: Kassie Roblero on 02/17/20 12:[address] Patient is discharging home today and I went to see if they needed anything from a CM standpoint. Patient would like to have HH, but stated he was a workman's comp case. He gave me his supportive employment case manager number Awais castro [phone] I called her and sent her an email her email address is [email or web address] Last DP export: 02/18/20 8:00 am Patient Name: KAREN SALAZAR Page 47446 at 1447 All edits/amendments must be made on the electronic document DICTATION DATE: 02/18/201446 ROUTER OPERATOR PIN: DORA 02/18/20 1447 RPT#: [id number] DC DATE:02/17/20 STATUS: DIS IN [facility] [address] [place] [address] END OF REPORT
== END 2020-02-17 17:03 | disposition home or self-care (01) | DRG 312 ==
LOC: D.ER 22:33 → D.MS 23:58 → OBSVTIME 23:58 → D.MS 02-16 00:39
PROVIDERS: Emergency Medicine; Family Medicine; ADMIT Emergency Medicine; ATTEND Emergency Medicine
DX: I95.81 Postprocedural hypotension (principal); E87.1 Hypo-osmolality and hyponatremia; N17.9 Acute kidney failure, unspecified; E11.65 Type 2 diabetes mellitus with hyperglycemia; I10 Essential (primary) hypertension; E78.5 Hyperlipidemia, unspecified; Z98.890 Other specified postprocedural states